=== PATIENT | male | born 1990 | race Asian ===

== ENCOUNTER 2018-05-27 19:57 | Inpatient (IN) | payer OTHER, BC ==
[2018-05-27] MEDS ORDERED: RINGERS SOLUTION,LACTATED 1,000 ML IV ONE (22:01)
[2018-05-27] MEDS ORDERED: CYCLOBENZAPRINE HCL 10 MG TABLET PO ONE (22:04)
--- NOTE | 2018-05-27 22:07 | ER Document Report ---
HPI - HPI Pain Level: 5 Notes: Patient is a 27-year-old male no significant past medical history who presents to the ED complaining of generalized muscle cramping that began after he got off of work. His last episode of cramping was about 4 hours ago. Patient states that he is starting to feel better. He is eating and drinking without any difficulties. He is urinating normally and having normal bowel movements. He denies any drug allergies, smoking, IV drug use, alcohol involvement. Patient believes that he has not been drinking enough water and works for [employer] so he has been outside most of the day. Denies any headache, fever, neck pain, changes in vision/speech/mentation/hearing, URI, sore throat, chest pain, palpitations, syncope, cough, shortness of breath, wheeze, dyspnea, abdominal pain, nausea/vomiting/diarrhea, urinary retention, dysuria, hematuria, loss of control of bowel or bladder, numbness/tingling, muscle paralysis/weakness, or rash. - ROS Systems Reviewed and Negative: Yes All other systems reviewed and negative Past Medical History - Social History Smoking Status: Never Smoker Family History: Reviewed & Not Pertinent - Past Medical History Cardiac Medical History: Reports: Hx Hypertension Psychiatric Medical History: Reports: Hx Anxiety - Immunizations Hx Diphtheria, Pertussis, Tetanus Vaccination: No Vertical Provider Document - CONSTITUTIONAL Agree With Documented VS: No - HR 80 during exam. Notes: PHYSICAL EXAMINATION: GENERAL: Well-appearing, well-nourished and in no acute distress. HEAD: Atraumatic, normocephalic. EYES: Pupils equal round and reactive to light, extraocular movements intact, sclera anicteric, conjunctiva are normal. ENT: Nares patent and without discharge. oropharynx clear without exudates. No tonsilar hypertrophy or erythema. Moist mucous membranes. NECK: Normal range of motion, supple without lymphadenopathy LUNGS: Breath sounds clear to auscultation bilaterally and equal. No wheezes rales or rhonchi. HEART: Regular rate and rhythm without murmurs, rubs, gallops. ABDOMEN: Soft, nontender, nondistended abdomen. No guarding, no rebound. No masses appreciated. Normal bowel sounds present. No CVA tenderness bilaterally. Musculoskeletal: FROM to passive/active. Strength 5+/5. Non-tender throughout. Extremities: No cyanosis, clubbing, or edema b/l. Peripheral pulses 2+. Capillary refill less than 3 seconds. NEUROLOGICAL: Normal speech, normal gait. PSYCH: Normal mood, normal affect. SKIN: Warm, Dry, normal turgor, no rashes or lesions noted. - INFECTION CONTROL TRAVEL OUTSIDE OF THE [place] IN LAST 30 DAYS: No Course - Re-evaluation Re-evalutation: 05/27/18 23:57 Patient is an afebrile 27-year-old male who presents to the ED with acute kidney injury and rhabdo. Vitals are currently acceptable without any significant tachycardia, tachypnea, or hypoxia. PE is otherwise unremarkable. Patient is tolerating p.o. without any difficulties. CBC showed an elevated white count at 19,000 with a left shift. He has a creatinine of 2.21. CK 1511. I did review this with Dr. Jaramillo who accepted patient for medical admission. Saline lock was placed. 2 L LR ordered and a continuous at 180 mL' s per hour. Patient is in agreement with plan. - Vital Signs Vital signs: Temp Pulse Resp BP Pulse Ox 121 H 20 131/64 H 100 05/27/18 20:12 05/27/18 20:12 05/27/18 20:12 05/27/18 20:12 - Laboratory Result Diagrams: 05/27/18 22:33 05/27/18 22:33 Discharge - Discharge Clinical Impression: ANTONINA (acute kidney injury) Rhabdomyolysis Qualifiers: Rhabdomyolysis type: non-traumatic Qualified Code(s): M62.82 - Rhabdomyolysis Leukocytosis Qualifiers: Leukocytosis type: unspecified Qualified Code(s): D72.829 - Elevated white blood cell count, unspecified Condition: Stable Disposition: ADMITTED INPATIENT Admitting Provider: Hospitalist - Dr. Jaramillo Unit Admitted: Medical Floor Referrals: TERRI LU PA-C [Primary Care Provider] - Follow up as needed
[2018-05-27 23:13] LABS: HEMATOCRIT 45.9 % (37.9-51.0); HEMOGLOBIN 15.4 g/dL (13.5-17.0); MEAN CORPUSCULAR HEMOGLOBIN 28.6 pg (27.0-33.4); MEAN CORPUSCULAR HGB CONC 33.5 g/dL (32.0-36.0); MEAN CORPUSCULAR VOLUME 85 fl (80-97); PLATELET COUNT 398 10^3/uL (150-450); RED BLOOD COUNT 5.37 10^6/uL (4.35-5.55); RED CELL DISTRIBUTION WIDTH 13.6 % (11.5-14.0); WHITE BLOOD COUNT 19.1 10^3/uL (4.0-10.5)
[2018-05-27 23:15] LABS: APPEARANCE,URINE CLOUDY; BILIRUBIN,URINE NEGATIVE (NEGATIVE); COLOR,URINE AMBER; GLUCOSE, URINE NEGATIVE (NEGATIVE); KETONES,URINE NEGATIVE (NEGATIVE); LEUKOCYTE ESTERASE,URINE NEGATIVE (NEGATIVE); NITRITE,URINE NEGATIVE (NEGATIVE); PROTEIN,URINE 100 mg/dL (NEGATIVE); URINE SPECIFIC GRAVITY 1.023
[2018-05-27 23:34] LABS: ABSOLUTE LYMPHOCYTES# (MANUAL) 1.5 10^3/uL (0.5-4.7); ABSOLUTE MONOCYTES # (MANUAL) 1.1 10^3/uL (0.1-1.4); ABSOLUTE NEUTROPHILS# (MANUAL) 16.2 10^3/uL (1.7-8.2); BASOPHILS % (MANUAL) 0 % (0-2); EOSINOPHILS % (MANUAL) 1 % (0-6); LYMPHOCYTES % (MANUAL) 6 % (13-45); MONOCYTES % (MANUAL) 6 % (3-13); SEGMENTED NEUTROPHILS % (MAN) 85 % (42-78); TOTAL CELLS COUNTED 100
[2018-05-27 23:35] LABS: ALANINE AMINOTRANSFERASE 40 U/L (21-72); ALBUMIN 5.2 g/dL (3.5-5.0); ALKALINE PHOSPHATASE 123 U/L (38-126); ANION GAP 14 (5-19); ASPARTATE AMINO TRANSFERASE 54 U/L (17-59); BILIRUBIN,DIRECT 0.4 mg/dL (0.0-0.4); BILIRUBIN,TOTAL 0.8 mg/dL (0.2-1.3); BLOOD UREA NITROGEN 26 mg/dL (7-20); CALCIUM 10.5 mg/dL (8.4-10.2); CARBON DIOXIDE 28 mmol/L (22-30); CHLORIDE 93 mmol/L (98-107); CREATINE KINASE 1511 U/L (55-170); GLUCOSE 108 mg/dL (75-110); PLATELET COMMENT ADEQUATE; RBC MORPHOLOGY COMMENT NORMO-CYTIC/CHROMIC; SODIUM 134.9 mmol/L (137-145); TOTAL PROTEIN 9.2 g/dL (6.3-8.2)
[2018-05-27] MEDS ORDERED: RINGERS SOLUTION,LACTATED 1,000 ML IV PRN ×2 (23:53→23:56)
[2018-05-28] MEDS ORDERED: MAG HYDROX/AL HYDROX/SIMETH SUSP 30 ML UDCUP PO PRN (03:18)
[2018-05-28] MEDS ORDERED: ACETAMINOPHEN 325 MG TABLET PO PRN (03:18)
[2018-05-28] MEDS ORDERED: PROMETHAZINE HCL INJ 25 MG/1 ML VIAL IV PRN (03:18)
[2018-05-28] MEDS ORDERED: METOPROLOL TARTRATE PF/INJ 5 MG/5 ML SDV IV PRN (03:23)
--- NOTE | 2018-05-28 04:20 | PDOC H&P ---
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 Denies nausea, vomiting, fever, chills, dizziness, lightheadedness, abdominal pain, diarrhea, dysuria or hematuria. In the emergency department patient noted with acute renal failure creatinine 2.26 and rhabdomyolysis CK 1511. 2 L of Ringer lactate order in the ED. Leukocytosis with WBC 19 K Past Medical History Cardiac Medical History: Reports: Hypertension Past Surgical History Past Surgical History: Reports: None Social History Information Source: Patient Lives with: Family Smoking Status: Never Smoker Frequency of Alcohol Use: None Hx Recreational Drug Use: No Family History Family History: Reviewed & Not Pertinent Family History: Mother 53 years old with history of hypertension, father 58 years old with history of hypertension Parental Family History Reviewed: Yes Children Family History Reviewed: NA Sibling(s) Family History Reviewed.: NA Medication/Allergy Home Medications: Cyclobenzaprine HCl [Flexeril 10 mg Tablet] 10 mg PO TIDP PRN 07/03/15 Lisinopril 20 mg PO DAILY 07/03/15 Azithromycin [Zithromax 250 mg Tablet] 250 mg PO ASDIR PRN #6 tablet 08/11/16 Fluticasone Propionate [Flonase Allergy Relief] 15.8 ml NS BID #1 spray.susp Hydrocodone Bit/Homatropine [Hycodan Syrup 5-1.5 mg/5 ml Ud Cup] 5 ml PO Q4HP PRN #120 ml 08/11/16 Prednisone 60 mg PO DAILY #15 tablet 08/11/16 Allergies/Adverse Reactions: No Known Allergies Allergy (Verified 08/11/16 18:02) Review of Systems Review of Systems: As outlined in the HPI, all others negative Physical Exam Vital Signs: Temp Pulse Resp BP Pulse Ox 98.3 F 90 18 150/89 H 99 05/28/18 01:13 05/28/18 01:13 05/28/18 01:13 05/28/18 01:13 05/28/18 01:13 Additional comments: General appearance: Well-developed, well-nourished, alert and cooperative, and appears to be in no acute distress. Looks weak and tired. Head: Normocephalic Eyes: PEERL, EOMI, vision is grossly intact. Ears: External auditory canal and tympanic membranes clear, hearing grossly intact. Nose: No nasal discharge. Throat: Oral cavity and pharynx normal. No inflammation, swelling, exudate or lesions. Neck: Neck supple, nontender without lymphadenopathy, masses or thyromegaly. Cardiac: Normal S1 and S2. No S3, S4 or murmurs. Rhythm is regular. There is no peripheral edema, cyanosis or pallor. Extremities are warm and well perfused. Capillary refill is less than 2 seconds. No carotid bruits. Lungs: Clear to auscultation and percussion without rales, rhonchi, wheezing or diminished breath sounds. Not using accessory muscles. Abdomen: Positive bowel sounds. Soft. Nondistended, nontender. No guarding or rebound. No masses. No hepatosplenomegaly Extremities: No significant deformity or joint abnormality. No edema. Peripheral pulses intact. No varicosities. Neurological: Cranial nerves II through XII grossly intact. Strength and sensation symmetric and intact throughout. Reflexes 2+ throughout. Skin: Skin normal color, texture and turgor with no lesions or eruptions, warm and dry. Psychiatric: The mental examination revealed the patient was oriented to person , place, and time. The patient was able to demonstrate good judgment on recent , without hallucinations, abnormal affect or abnormal behaviors. Results Laboratory Results: 05/27/18 05/27/18 05/27/18 22:30 22:33 22:33 WBC 19.1 H RBC 5.37 Hgb 15.4 Hct 45.9 MCV 85 MCH 28.6 MCHC 33.5 RDW 13.6 Plt Count 398 Seg Neuts % (Manual) 85 H Lymphocytes % (Manual) 6 L Atypical Lymphs % 2 Monocytes % (Manual) 6 Eosinophils % (Manual) 1 Basophils % (Manual) 0 Abs Neuts (Manual) 16.2 H Abs Lymphs (Manual) 1.5 Abs Monocytes (Manual) 1.1 Abs Basophils (Manual) 0.0 Platelet Comment ADEQUATE RBC Morph Comment NORMO-CYTIC/CHROMIC Sodium 134.9 L Chloride 93 L Carbon Dioxide 28 Anion Gap 14 BUN 26 H Creatinine 2.26 H Est GFR ( Amer) 42 L Est GFR (Non-Af Amer) 35 L Glucose 108 Calcium 10.5 H Magnesium 2.5 H Total Bilirubin 0.8 Direct Bilirubin 0.4 AST 54 ALT 40 Alkaline Phosphatase 123 Creatine Kinase 1511 H Total Protein 9.2 H Albumin 5.2 H Urine Color RONAN Urine Appearance CLOUDY Urine pH 5.0 Ur Specific [place] 1.023 Urine Protein 100 H Urine Glucose (UA) NEGATIVE Urine Ketones NEGATIVE Urine Blood SMALL H Urine Bilirubin NEGATIVE Urine Urobilinogen 4.0 H Urine WBC (Auto) 6 Urine RBC (Auto) 5 U Hyaline Cast (Auto) 245 Urine Bacteria (Auto) TRACE Urine Mucus (Auto) MANY Assessment & Plan - Diagnosis (1) Rhabdomyolysis Qualifiers: Rhabdomyolysis type: non-traumatic Qualified Code(s): M62.82 - Rhabdomyolysis Is this a current diagnosis for this admission?: Yes Plan: Patient comes with severe dehydration and CK of 1511, 2 L of Ringer lactate given in the ED, will continue with normal saline running at 150 cc/h. initially with dark urine that has been clearing after fluids given, good urine output. Looking to previous labs his CK is usually elevated [phone]. Will reassess CK with morning labs. (2) Leukocytosis Qualifiers: Leukocytosis type: unspecified Qualified Code(s): D72.829 - Elevated white blood cell count, unspecified Is this a current diagnosis for this admission?: Yes Plan: WBC 19 K, doubt this is infectious, might be related with his dehydration. Will reassess CBC in the morning after IV hydration. (3) ANTONINA (acute kidney injury) Is this a current diagnosis for this admission?: Yes Plan: BUN 26 and creatinine 2.26 in the setting of normal renal function. Likely this is prerenal secondary to severe dehydration. Will reassess renal panel with morning labs, do not feel further workup is warranted. (4) Hypertension Is this a current diagnosis for this admission?: Yes Plan: BP 150/80, will resume his home antihypertensive medications and place him on IV labetalol as needed - Time Time Spent: 30 to 50 Minutes - Inpatient Certification Based on my medical assessment, after consideration of the patient's comorbidities, presenting symptoms, or acuity I expect that the services needed warrant INPATIENT care.: Yes I certify that my determination is in accordance with my understanding of Medicare's requirements for reasonable and necessary INPATIENT services [42 CFR 412.3e].: Yes Medical Necessity: Need For IV Fluids, Risk of Complication if Not Cared For in Hospital
[2018-05-28] MEDS: HEPARIN SOD (PORCINE) 5,000 UNIT/ML 1 ML SYRINGE SUBCUT SCH ×3 (06:39→21:41)
[2018-05-28] MEDS: NORMAL SALINE 1000 ML 1,000 ML IV PRN ×4 (06:47→21:39)
[2018-05-28 07:21] LABS: ABSOLUTE EOSINOPHILS # (AUTO) 0.1 10^3/uL (0.0-0.6); ABSOLUTE LYMPHOCYTES (AUTO) 1.9 10^3/uL (0.5-4.7); ABSOLUTE MONOCYTES (AUTO) 1.2 10^3/uL (0.1-1.4); ABSOLUTE NEUT (AUTO) 7.5 10^3/uL (1.7-8.2); BASOPHILS % (AUTO) 0.4 % (0-2); EOSINOPHILS % (AUTO) 0.8 % (0-6); HEMATOCRIT 39.7 % (37.9-51.0); HEMOGLOBIN 13.4 g/dL (13.5-17.0); LYMPHOCYTES % (AUTO) 17.7 % (13-45); MEAN CORPUSCULAR HEMOGLOBIN 29.1 pg (27.0-33.4); MEAN CORPUSCULAR HGB CONC 33.8 g/dL (32.0-36.0); MEAN CORPUSCULAR VOLUME 86 fl (80-97); PLATELET COUNT 339 10^3/uL (150-450); RED BLOOD COUNT 4.62 10^6/uL (4.35-5.55); RED CELL DISTRIBUTION WIDTH 13.8 % (11.5-14.0); SEGMENTED NEUTROPHILS % (AUTO) 70.1 % (42-78); TOTAL CELLS COUNTED % (AUTO) 100 %; WHITE BLOOD COUNT 10.7 10^3/uL (4.0-10.5)
[2018-05-28 07:29] LABS: ANION GAP 9 (5-19); BLOOD UREA NITROGEN 18 mg/dL (7-20); CALCIUM 9.2 mg/dL (8.4-10.2); CARBON DIOXIDE 29 mmol/L (22-30); CHLORIDE 99 mmol/L (98-107); GLUCOSE 111 mg/dL (75-110); POTASSIUM 3.6 mmol/L (3.6-5.0); SODIUM 137.2 mmol/L (137-145)
[2018-05-28 07:49] LABS: CREATINE KINASE 7444 U/L (55-170)
[2018-05-28 09:07] LABS: URINE AMPHETAMINES SCREEN NEGATIVE; URINE BARBITURATES SCREEN NEGATIVE; URINE BENZODIAZEPINES SCREEN NEGATIVE; URINE COCAINE SCREEN NEGATIVE; URINE MARIJUANA (THC) SCREEN NEGATIVE; URINE METHADONE SCREEN NEGATIVE; URINE PHENCYCLIDINE SCREEN NEGATIVE
[2018-05-28] MEDS ORDERED: HYDRALAZINE HCL INJ/PF 20 MG/1 ML SDV IV PRN (17:17)
--- NOTE | 2018-05-28 20:50 | PDOC PROGRESS REPORT ---
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 At work on 05/27/18 during the late afternoon he developed generalized body cramps and muscle spasms, associated with dark urine. He admits to having poor fluid intake and denies nausea, vomiting, fever, chills, dizziness, lightheadedness, abdominal pain, diarrhea, dysuria or hematuria. He futher denies prior similar symtoms and he has not identified any aggravating or ameliorating factors for his cramping. In the emergency department he was found to have acute kidney injury with a creatinine of 2.26 and rhabdomyolysis with a CK of 1511. He was also noted to have a leukocytosis of 19K. He was admitted for IV fluid resuscitation and monitoring of his rhabdomyolysis with further intervention as needed. 05/28/18: Dandre is feeling a little better after several liters of IV fluid and has noted that his urine is not as dark as before. The muscle cramps have deminished significantly to the point where he now has mild to moderate aching. Reason For Visit: generalized body cramps Physical Exam Vital Signs: Temp Pulse Resp BP Pulse Ox 98.3 F 74 16 158/76 H 100 05/28/18 19:48 05/28/18 19:48 05/28/18 19:48 05/28/18 19:48 05/28/18 19:48 Intake & Output 05/27/18 05/28/18 05/29/18 06:59 06:59 06:59 Intake Total 3885 Balance 3885 Weight 111.13 kg General appearance: PRESENT: cooperative, mild distress, obese Head exam: PRESENT: atraumatic, normocephalic Eye exam: PRESENT: conjunctiva pink. ABSENT: nystagmus, scleral icterus Ear exam: PRESENT: normal external ear exam. ABSENT: drainage Mouth exam: PRESENT: neck supple, tongue midline Neck exam: PRESENT: full ROM. ABSENT: tenderness, tracheal deviation Respiratory exam: PRESENT: clear to auscultation dorothea, symmetrical, unlabored Cardiovascular exam: PRESENT: RRR. ABSENT: clicks, diastolic murmur, gallop, rubs, systolic murmur Pulses: PRESENT: normal carotid pulses, normal radial pulses, normal dorsalis pedis pul Vascular exam: PRESENT: normal capillary refill. ABSENT: pallor GI/Abdominal exam: PRESENT: normal bowel sounds, soft. ABSENT: distended, tenderness Rectal exam: PRESENT: deferred Extremities exam: ABSENT: joint swelling, pedal edema Musculoskeletal exam: PRESENT: full ROM, normal inspection Neurological exam: PRESENT: alert, awake, oriented to person, oriented to place , oriented to time, oriented to situation, CN II-XII grossly intact. ABSENT: motor sensory deficit Psychiatric exam: PRESENT: appropriate affect, normal mood Skin exam: ABSENT: jaundice, rash, urticaria Results Laboratory Results: 05/28/18 06:33 05/28/18 06:33 05/28/18 05/28/18 06:33 06:33 WBC 10.7 H RBC 4.62 Hgb 13.4 L Hct 39.7 MCV 86 MCH 29.1 MCHC 33.8 RDW 13.8 Plt Count 339 Seg Neutrophils % 70.1 Lymphocytes % 17.7 Monocytes % 11.0 Eosinophils % 0.8 Basophils % 0.4 Absolute Neutrophils 7.5 Absolute Lymphocytes 1.9 Absolute Monocytes 1.2 Absolute Eosinophils 0.1 Absolute Basophils 0.0 Sodium 137.2 Potassium 3.6 Chloride 99 Carbon Dioxide 29 Anion Gap 9 BUN 18 Creatinine 1.28 H Est GFR ( Amer) > 60 Est GFR (Non-Af Amer) > 60 Glucose 111 H Calcium 9.2 05/28/18 05/28/18 06:33 17:46 Creatine Kinase 7444 H 01018 H Assessment & Plan - Diagnosis (1) ANTONINA (acute kidney injury) Is this a current diagnosis for this admission?: Yes Plan: IV fluids and supportive therapy. (2) Hypertension Is this a current diagnosis for this admission?: Yes Plan: Hold Lisinopril, treat prn with hydralazine until resolution of ANTONINA (3) Leukocytosis Qualifiers: Leukocytosis type: unspecified Qualified Code(s): D72.829 - Elevated white blood cell count, unspecified Is this a current diagnosis for this admission?: Yes Plan: Monitor WBC on daily labs (4) Rhabdomyolysis Qualifiers: Rhabdomyolysis type: non-traumatic Qualified Code(s): M62.82 - Rhabdomyolysis Is this a current diagnosis for this admission?: Yes Plan: IV fluid therapy and serial monitoring of CK - Time Time Spent with patient: 35 or more minutes Medications reviewed and adjusted accordingly: Yes Anticipated discharge: Home Within: within 72 hours
[2018-05-29] MEDS: NORMAL SALINE 1000 ML 1,000 ML IV PRN ×6 (02:07→21:52)
[2018-05-29] MEDS: HEPARIN SOD (PORCINE) 5,000 UNIT/ML 1 ML SYRINGE SUBCUT SCH ×3 (05:39→21:55)
[2018-05-29 07:11] LABS: ABSOLUTE BASOPHILS # (AUTO) 0.1 10^3/uL (0.0-0.2); ABSOLUTE EOSINOPHILS # (AUTO) 0.2 10^3/uL (0.0-0.6); ABSOLUTE LYMPHOCYTES (AUTO) 1.9 10^3/uL (0.5-4.7); ABSOLUTE MONOCYTES (AUTO) 0.6 10^3/uL (0.1-1.4); ABSOLUTE NEUT (AUTO) 2.6 10^3/uL (1.7-8.2); HEMATOCRIT 39.4 % (37.9-51.0); HEMOGLOBIN 13.1 g/dL (13.5-17.0); LYMPHOCYTES % (AUTO) 36.4 % (13-45); MEAN CORPUSCULAR HEMOGLOBIN 28.9 pg (27.0-33.4); MEAN CORPUSCULAR HGB CONC 33.4 g/dL (32.0-36.0); MEAN CORPUSCULAR VOLUME 87 fl (80-97); MONOCYTES % (AUTO) 10.7 % (3-13); PLATELET COUNT 290 10^3/uL (150-450); RED BLOOD COUNT 4.54 10^6/uL (4.35-5.55); RED CELL DISTRIBUTION WIDTH 13.8 % (11.5-14.0); SEGMENTED NEUTROPHILS % (AUTO) 48.9 % (42-78); TOTAL CELLS COUNTED % (AUTO) 100 %; WHITE BLOOD COUNT 5.3 10^3/uL (4.0-10.5)
[2018-05-29 07:41] LABS: ANION GAP 5 (5-19); BLOOD UREA NITROGEN 14 mg/dL (7-20); CALCIUM 8.3 mg/dL (8.4-10.2); CARBON DIOXIDE 25 mmol/L (22-30); CHLORIDE 111 mmol/L (98-107); GLUCOSE 89 mg/dL (75-110); POTASSIUM 4.4 mmol/L (3.6-5.0); SODIUM 141.2 mmol/L (137-145)
[2018-05-29 07:50] LABS: CREATINE KINASE 14151 U/L (55-170)
--- NOTE | 2018-05-29 16:50 | PDOC PROGRESS REPORT ---
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 At work on 05/27/18 during the late afternoon he developed generalized body cramps and muscle spasms, associated with dark urine. He admits to having poor fluid intake and denies nausea, vomiting, fever, chills, dizziness, lightheadedness, abdominal pain, diarrhea, dysuria or hematuria. He futher denies prior similar symtoms and he has not identified any aggravating or ameliorating factors for his cramping. In the emergency department he was found to have acute kidney injury with a creatinine of 2.26 and rhabdomyolysis with a CK of 1511. He was also noted to have a leukocytosis of 19K. He was admitted for IV fluid resuscitation and monitoring of his rhabdomyolysis with further intervention as needed. 05/28/18: Dandre is feeling a little better after several liters of IV fluid and has noted that his urine is not as dark as before. The muscle cramps have deminished significantly to the point where he now has mild to moderate aching. 05/29/18: Dandre states he feels like he is back to normal today. He was looking forward to going home and possibly attending his nephew's football game however his CK has remained elevated throughout the day and until we are seeing a significant drop he understands that it is necessary for him to continue to receive IV hydration and be closely monitored for any acute symptoms or changes in his status. He denies any nausea vomiting or diarrhea today and he has been drinking fluids very well and tolerating an oral diet with no problems. He states his urine has become yellow and has even become very light yellow, almost clear. He is agreeable to continued serial evaluations of his CK and discharged home as soon as possible. Reason For Visit: RHABDOMYOLYSIS, ANTONINA Physical Exam Vital Signs: Temp Pulse Resp BP Pulse Ox 97.3 F 57 L 16 141/81 H 100 05/29/18 15:41 05/29/18 15:41 05/29/18 15:41 05/29/18 15:41 05/29/18 15:41 Intake & Output 05/28/18 05/29/18 05/30/18 06:59 06:59 06:59 Intake Total 7149 1978 Output Total 550 Balance 6599 1978 Weight 119.1 kg General appearance: PRESENT: no acute distress, cooperative Head exam: PRESENT: atraumatic, normocephalic Eye exam: PRESENT: conjunctiva pink. ABSENT: conjunctival injection Ear exam: PRESENT: normal external ear exam. ABSENT: drainage Mouth exam: PRESENT: moist, neck supple Neck exam: ABSENT: thyromegaly, tracheal deviation Respiratory exam: PRESENT: clear to auscultation dorothea, symmetrical, unlabored Cardiovascular exam: PRESENT: RRR. ABSENT: clicks, gallop, rubs Vascular exam: PRESENT: normal capillary refill. ABSENT: pallor GI/Abdominal exam: PRESENT: normal bowel sounds, soft Extremities exam: ABSENT: joint swelling, pedal edema Musculoskeletal exam: PRESENT: full ROM, normal inspection Neurological exam: PRESENT: alert, awake, oriented to person, oriented to place , oriented to time, oriented to situation, CN II-XII grossly intact. ABSENT: motor sensory deficit Psychiatric exam: PRESENT: appropriate affect, normal mood Skin exam: ABSENT: intact, petechiae, urticaria Results Laboratory Results: 05/29/18 06:18 05/29/18 06:18 05/29/18 05/29/18 05/29/18 06:18 06:18 06:18 WBC 5.3 RBC 4.54 Hgb 13.1 L Hct 39.4 MCV 87 MCH 28.9 MCHC 33.4 RDW 13.8 Plt Count 290 Seg Neutrophils % 48.9 Lymphocytes % 36.4 Monocytes % 10.7 Eosinophils % 3.0 Basophils % 1.0 Absolute Neutrophils 2.6 Absolute Lymphocytes 1.9 Absolute Monocytes 0.6 Absolute Eosinophils 0.2 Absolute Basophils 0.1 Sodium 141.2 Potassium 4.4 Chloride 111 H Carbon Dioxide 25 Anion Gap 5 BUN 14 Creatinine 0.98 Est GFR ( Amer) > 60 Est GFR (Non-Af Amer) > 60 Glucose 89 Calcium 8.3 L Magnesium 2.1 05/28/18 05/28/18 05/28/18 06:33 17:46 17:46 Creatine Kinase 7444 H 28798 H CK-MB (CK-2) 47.10 H 05/29/18 05/29/18 06:18 14:39 Creatine Kinase 90967 H 66305 H CK-MB (CK-2) Assessment & Plan - Diagnosis (1) ANTONINA (acute kidney injury) Is this a current diagnosis for this admission?: Yes Plan: IV fluids and supportive therapy have resulted in resolution of this problem. (2) Hypertension Is this a current diagnosis for this admission?: Yes Plan: Hold Lisinopril, treat prn with hydralazine until resolution of ANTONINA. Remains stable (~140/80) at this point without therapy. (3) Leukocytosis Qualifiers: Leukocytosis type: unspecified Qualified Code(s): D72.829 - Elevated white blood cell count, unspecified Is this a current diagnosis for this admission?: Yes Plan: Monitor WBC on daily labs. Resolved on 05/29/18 (4) Rhabdomyolysis Qualifiers: Rhabdomyolysis type: non-traumatic Qualified Code(s): M62.82 - Rhabdomyolysis Is this a current diagnosis for this admission?: Yes Plan: IV fluid therapy and serial monitoring of CK - Time Time Spent with patient: 25-34 minutes Medications reviewed and adjusted accordingly: Yes Anticipated discharge: Home Within: within 48 hours
[2018-05-30] MEDS: NORMAL SALINE 1000 ML 1,000 ML IV PRN ×2 (02:45→06:27)
[2018-05-30] MEDS: HEPARIN SOD (PORCINE) 5,000 UNIT/ML 1 ML SYRINGE SUBCUT SCH (05:41)
[2018-05-30 08:19] VITALS: BP 141/88
[2018-05-30] MEDS ORDERED: (PENDING PHARMACY ID) (Lisinopril [Prinivil] 20 MG) PO SCH (10:00)
[2018-05-30] MEDS ORDERED: LISINOPRIL 10 MG TABLET PO SCH (10:00)
[2018-05-30 10:14] LABS: HEMATOCRIT 37.1 % (37.9-51.0); HEMOGLOBIN 12.3 g/dL (13.5-17.0); MEAN CORPUSCULAR HEMOGLOBIN 29.1 pg (27.0-33.4); MEAN CORPUSCULAR HGB CONC 33.3 g/dL (32.0-36.0); MEAN CORPUSCULAR VOLUME 87 fl (80-97); PLATELET COUNT 286 10^3/uL (150-450); RED BLOOD COUNT 4.24 10^6/uL (4.35-5.55); RED CELL DISTRIBUTION WIDTH 13.6 % (11.5-14.0); WHITE BLOOD COUNT 7.6 10^3/uL (4.0-10.5)
[2018-05-30 10:42] LABS: BLOOD UREA NITROGEN 11 mg/dL (7-20); CALCIUM 8.8 mg/dL (8.4-10.2); CARBON DIOXIDE 25 mmol/L (22-30); CHLORIDE 109 mmol/L (98-107); GLUCOSE 88 mg/dL (75-110); POTASSIUM 4.4 mmol/L (3.6-5.0)
[2018-05-30 10:48] LABS: SODIUM 138.2 mmol/L (137-145)
[2018-05-30 10:50] LABS: ANION GAP 4 (5-19)
[2018-05-30 11:02] LABS: CREATINE KINASE 13559 U/L (55-170)
--- NOTE | 2018-05-30 12:33 | PDOC DISCHARGE SUMMARY ---
General - Admit/Disc Date/PCP Admission Date/Primary Care Provider: 05/28/18 00:03 TERRI LU PA-C Discharge Date: 05/30/18 - Discharge Diagnosis (1) ANTONINA (acute kidney injury) Is this a current diagnosis for this admission?: Yes Summary: Renal functions returned to normal with IV and oral rehydration (2) Leukocytosis Is this a current diagnosis for this admission?: Yes Summary: WBC returned to normal with IV and oral rehydration (3) Rhabdomyolysis Is this a current diagnosis for this admission?: Yes Summary: CK ramo for the first 36-48 hours and has begun to return to normal with IV and oral rehydration - Additional Information Discharge Diet: Regular Discharge Activity: Activity As Tolerated, Balance Activity w/Rest Home Medications: Lisinopril [Prinivil] 20 mg PO DAILY 05/28/18 History of Present Illness Patient complains of: Generalized Muscle Cramping History of Present Illness: JUAN LANDIS is a 27 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 At work on 05/27/18 during the late afternoon he developed generalized body cramps and muscle spasms, associated with dark urine. He admits to having poor fluid intake and denies nausea, vomiting, fever, chills, dizziness, lightheadedness, abdominal pain, diarrhea, dysuria or hematuria. He futher denies prior similar symtoms and he has not identified any aggravating or ameliorating factors for his cramping. Hospital Course Hospital Course: In the emergency department he was found to have acute kidney injury with a creatinine of 2.26 and rhabdomyolysis with a CK of 1511. He was also noted to have a leukocytosis of 19K. He was admitted for IV fluid resuscitation and monitoring of his rhabdomyolysis with further intervention as needed. 05/28/18: Juan is feeling a little better after several liters of IV fluid and has noted that his urine is not as dark as before. The muscle cramps have deminished significantly to the point where he now has mild to moderate aching. 05/29/18: Juan states he feels like he is back to normal today. He was looking forward to going home and possibly attending his nephew's football game however his CK has remained elevated throughout the day and until we are seeing a significant drop he understands that it is necessary for him to continue to receive IV hydration and be closely monitored for any acute symptoms or changes in his status. He denies any nausea vomiting or diarrhea today and he has been drinking fluids very well and tolerating an oral diet with no problems. He states his urine has become yellow and has even become very light yellow, almost clear. He is agreeable to continued serial evaluations of his CK and discharged home as soon as possible. 05/30/18: Juan's CK has fallen by more thn 20% and he is clinically asymptomatic. He denies nausea, vomiting, abdominal pain, headache, fever, chills and dyspnea. His urine is normal in coloration. He feels well and would like to be discharged today. Physical Exam Vital Signs: Temp Pulse Resp BP Pulse Ox 98.7 F 55 L 18 141/88 H 98 05/30/18 10:26 05/30/18 10:26 05/30/18 10:26 05/30/18 10:26 05/30/18 10:26 Intake & Output 05/29/18 05/30/18 05/31/18 06:59 06:59 06:59 Intake Total 7149 7467 Output Total 550 Balance 6599 7467 Weight 119.1 kg 120 kg General appearance: PRESENT: no acute distress, cooperative, obese Head exam: PRESENT: atraumatic, normocephalic Eye exam: PRESENT: conjunctiva pink. ABSENT: conjunctival injection Ear exam: PRESENT: normal external ear exam. ABSENT: drainage Mouth exam: PRESENT: moist, neck supple Neck exam: ABSENT: thyromegaly, tracheal deviation Respiratory exam: PRESENT: clear to auscultation dorothea, symmetrical, unlabored Cardiovascular exam: PRESENT: RRR. ABSENT: clicks, gallop, rubs Vascular exam: PRESENT: normal capillary refill. ABSENT: pallor GI/Abdominal exam: PRESENT: normal bowel sounds, soft Rectal exam: PRESENT: deferred Extremities exam: ABSENT: joint swelling, pedal edema Musculoskeletal exam: PRESENT: full ROM, normal inspection Neurological exam: PRESENT: alert, awake, oriented to person, oriented to place , oriented to time, oriented to situation, CN II-XII grossly intact. ABSENT: motor sensory deficit Psychiatric exam: PRESENT: appropriate affect, normal mood Skin exam: ABSENT: jaundice, rash, urticaria Results Laboratory Results: 05/30/18 09:54 05/30/18 09:54 05/30/18 05/30/18 09:54 09:54 WBC 7.6 RBC 4.24 L Hgb 12.3 L Hct 37.1 L MCV 87 MCH 29.1 MCHC 33.3 RDW 13.6 Plt Count 286 Sodium 138.2 Potassium 4.4 Chloride 109 H Carbon Dioxide 25 Anion Gap 4 L BUN 11 Creatinine 0.78 Est GFR ( Amer) > 60 Est GFR (Non-Af Amer) > 60 Glucose 88 Calcium 8.8 Magnesium 1.7 05/28/18 05/28/18 05/28/18 06:33 17:46 17:46 Creatine Kinase 7444 H 80999 H CK-MB (CK-2) 47.10 H 05/29/18 05/29/18 05/29/18 06:18 14:39 20:43 Creatine Kinase 16245 H 70378 H 34286 H CK-MB (CK-2) 05/30/18 05/30/18 02:48 09:54 Creatine Kinase 79274 H 98310 H CK-MB (CK-2) Qualifiers - * PATIENT BEING DISCHARGED WITH ANY OF THE FOLLOWING DIAGNOSIS: No Plan Time Spent: Greater than 30 Minutes
== END 2018-05-30 10:25 | disposition home or self-care (01) | DRG 683 ==
LOC: ER 19:57 → EH 05-28 00:03 → 4S 05-28 12:49
PROVIDERS: ADMIT Internal Medicine; ATTEND Internal Medicine
DX: N17.9 Acute kidney failure, unspecified (principal); M62.82 Rhabdomyolysis; Z68.41 Body mass index [BMI] 40.0-44.9, adult; E86.0 Dehydration; I10 Essential (primary) hypertension; E66.9 Obesity, unspecified; F41.9 Anxiety disorder, unspecified; Z79.899 Other long term (current) drug therapy; Z82.49 Family history of ischemic heart disease and other diseases of the circulatory system
CPT/HCPCS: 36415; 80048; 80053; 80307; 81001; 82550; 82553; 83735; 85025; 85027; 99285; J1644; J3490; J7030; J7120